=== PATIENT | female | born 1980 | race Caucasian/White ===

== ENCOUNTER 2017-12-16 09:33 | Outpatient (CLI) | payer OTHER ==
--- NOTE | 2017-12-17 09:29 | Ultrasound Report ---
Procedure Date: 12/16/2017 Accession Number: [id number] / [id number] Procedure: US - Abdomen Limited CPT Code: FULL RESULT: EXAM: ABDOMEN ULTRASOUND LIMITED, RUQ EXAM DATE: 12/16/2017 10:42 AM. CLINICAL HISTORY: Epigastric right upper quadrant pain. COMPARISON: None. TECHNIQUE: Real-time scanning was performed with static images obtained. FINDINGS: Liver: Echogenic hepatic parenchyma. No hepatic lesions. No intrahepatic ductal dilatation. Liver is not enlarged, 15.3 cm. Main portal vein flow: Hepatopetal. Gallbladder: Normal. No stones, wall thickening, or sonographic Glass's sign. Biliary System: CBD measures 2-3 mm. No intrahepatic or extrahepatic ductal dilatation. Other: Right kidney is normal in contour and echotexture and measures 10 cm. No hydronephrosis. No renal calculi or renal masses. IMPRESSION: 1. Echogenic hepatic parenchyma, findings typically seen with fatty replacement. No hepatic lesions. 2. Normal gallbladder. No biliary ductal dilatation. RADIA
== END 2017-12-16 09:34 | disposition home or self-care (01) ==
LOC: DI 09:33
PROVIDERS: ATTEND Internal Medicine
DX: R10.13 Epigastric pain (principal); R14.2 Eructation
CPT/HCPCS: 76705

== ENCOUNTER 2022-02-01 11:26 | Outpatient (CLI) | payer OTHER ==
--- NOTE | 2022-02-01 13:52 | XRAY Report ---
PROCEDURE: Finger(s) RT INDICATIONS: PAIN IN RT FINGER(S) TECHNIQUE: AP hand, 3 views of the middle finger(s) acquired. COMPARISON: None FINDINGS: Bones: No fractures or dislocations. No suspicious bony lesions. Soft tissues: No suspicious soft tissue calcifications. IMPRESSION: Normal right hand and middle finger. Reviewed by: Odell Candelario on 02/01/2022 1:50 PM PDT Approved by: Odell Candelario on 02/01/2022 1:50 PM PDT Station ID: [id number]
== END 2022-02-01 11:27 | disposition home or self-care (01) ==
LOC: DI 11:26
PROVIDERS: ATTEND Registered Nurse
DX: M79.644 Pain in right finger(s) (principal)